=== PATIENT | male | born 1960 | race Caucasian/White ===

== ENCOUNTER → 2020-06-25 15:06 | Outpatient (CLI) | payer OTHER, SELFPAY ==
--- NOTE | 2020-06-25 10:44 | LES_PTH ---
PATIENT: VLADIMIR KURTZ LOC: [facility] U#:[id number] AGE/SX: 65/M ROOM: RE06/25/[address]: Dr. Willard Schreiber MD : [id number] BED: DIS: SPEC #: [id number] RECD: 06/26/20 06:42 STATUS: LOVE ANNY #: [id number] AVILA: 06/25/20 10:[address]: Willard Schreiber DEPT: SURGICAL PATHOLOGY RECD BY: Jeannine Mckenzie ENTERED: 06/26/20 06:43 SP TYPE: Lesion OTHR DR: No Primary Care Phys Tissues: Skin of external ear, NOS Procedures: Surgery Specimen Level IV HEADER OPERATION: Right ear biopsy PRE-OP DIAGNOSIS: Right ear lesion, history of basal cell CA TISSUE SUBMITTED: Right ear lesion MICROSCOPIC DIAGNOSIS Right ear lesion, biopsy: Basal cell carcinoma. SJ:edward 06/27/20 COMMENT Case has been reviewed in consultation with Dr. Horan who concurs with the above diagnosis. IDC:AM MICROSCOPIC DESCRIPTION Slides are reviewed. GROSS DESCRIPTION Received in fixative is one container labeled with the patient's name and designated right ear biopsy. The specimen consists of a piece of whittaker-white skin measuring 0.3 x 0.3 x 0.1 cm. The entire specimen is submitted in one cassette. / FABBY:edward 06/26/20 TC:0 CPT: 73664 ADDENDUM ADDENDUM ADDENDUM ADDENDUM ADDENDUM ADDENDUM ADDENDUM ADDENDUM ADDENDUM ADDENDUM 09/30/2020 10:18 ADDENDUM 09/30/2020 10:18 ADDENDUM 09/30/2020 10:18 ADDENDUM 09/30/2020 10:18 ADDENDUM 09/30/2020 10:18 This addendum is added to incorporate an outside pathology consultation report. The case was examined at [facility] (#[id number]) and the following diagnosis was rendered. Right ear lesion, biopsy: Invasive basal cell carcinoma. Please see complete above mentioned consultation report in EMR
== END ==
PROVIDERS: Referring Provider Otolaryngology; Visit Provider Otolaryngology
DX: H93.91 Unspecified disorder of right ear (principal); Z85.828 Personal history of other malignant neoplasm of skin
CPT/HCPCS: 88305

== ENCOUNTER 2020-10-09 09:29 | Outpatient (RCR) | payer MEDICAID, SELFPAY ==
[2020-09-03 09:14] VITALS: BMI 34.5
--- NOTE | 2020-10-09 10:00 | SOAP_ITS ---
REASON FOR REFERRAL: The patient is a 60 year old male referred for a clinical assessment of the swallow function at [facility] on 10/09/2020 due to high risk infiltrating type basal cell carcinoma involving the right external ear canal, cartilage, anterior soft tissue and abutting the right parotid gland status post right ear lesion biopsy (06/25/2020), CT neck with contrast (07/17/2020), and wide local excision with right partial auriculectomy, right superficial parotidectomy, right neck exploration and flap based reconstruction (07/30/2020). RESULTS OF THE EVALUATION: The patient presents with mastication and deglutition abilities found to be grossly within functional limits (SPS: 2), though is at high risk of post irradiation trismus and post irradiation dysphagia which would benefit from further prophylactic treatment approaches. FUNCTIONAL STATUS ASSESSMENT RESULTS: KARNOFSKY PERFORMANCE SCALE INDEX: KARNOFSKY SCORE: 90 SCORE DESCRIPTION: able to carry on normal activity; minor signs or symptoms of disease; able to carry on normal activity and to work; no special care needed. ECOG PERFORMANCE STATUS SCORE: ECOG SCORE: 0 SCORE CRITERIA: asymptomatic SCORE DESCRIPTION: fully active, able to carry on all pre-disease activities without restriction. FUNCTIONAL AMBULATION CATEGORY (FAC): FAC SCORE: 5 (of 5) FAC DESCRIPTION: ambulator- independent SUPPLEMENTARY DYSPHAGIA ASSESSMENT RESULTS (SCALES / PROM): PERFORMANCE STATUS SCALE FOR HEAD & NECK CANCER PATIENT S (PSS-HN): NORMALCY OF DIET: 100 ? full diet (no restrictions) PUBLIC EATIN ? no restriction of place, food, or company UNDERSTANDABILITY OF SPEECH: 100 ? always understandable PSS-HN TOTAL SCORE: 300/300 PSS-HN SCORE INTERPRETATION: higher scores indicate higher degrees of functioning. ORAL MOTOR / MODIFIED CRANIAL NERVE ASSESSMENT: TRIGEMINAL NERVE (CNV): no clinically significant abnormalities observed FACIAL NERVE (CNVII): no clinically significant abnormalities observed GLOSSOPHARYNGEAL NERVE (CNIX): no clinically significant abnormalities observed VAGUS NERVE (CNX): no clinically significant abnormalities observed HYPOGLOSSAL NERVE (CNXII): no clinically significant abnormalities observed FACIAL STRUCTURES: right partial auriculectomy and facial skin resection with skin graft MANDIBULAR FUNCTIONING: no current signs or symptoms suggesting trismus INTER-INCISOR DISTANCE (IID) AVERAGE IID: 4.25 cm IID GRADE: grade 0 IID GRADE DESCRIPTION: no symptoms of OSMF; without trismus WORLD HEALTH ORGANIZATION (WHO) ORAL MUCOSITIS SCALE: WHO ORAL MUCOSITIS SCALE GRADE: grade 0 WHO ORAL MUCOSITIS SCALE GRADE DESCRIPTION: no objective findings, function irrelevant SCALE OF SUBJECTIVE TOTAL TASTE ACUITY (STTA): STTA GRADE: grade 0 STTA GRADE DESCRIPTION: same taste acuity as before treatment RTOG RADIATION MORBIDITY SCORING CRITERIA FOR XEROSTOMIA: ACUTE REACTIONS: grade I GRADE DESCRIPTION: mild mouth dryness; slightly thickened saliva; changes are not reflected by alteration in baseline feeding SIALORRHEA SCORING SCALE (SSS): SSS SCORE: 1 (of 9) SSS DESCRIPTION: dry, never drools CLINICAL ASSESSMENT OF SWALLOW FUNCTION (QUANTITATIVE): REPETITIVE SALIVA SWALLOWING TEST (RSST): RSST RESULT: pass RSST DESCRIPTION: able to elicit 2 dry swallows within 30 seconds. 1OZ WATER SWALLOWING TEST (1OZ WST): 1OZ WST RESULTS: normal ? 1 (of 5) 1OZ WST DESCRIPTION: single swallow without coughing during ingestion DRINKING EPISODES: none 3OZ WATER SWALLOWING TEST (3OZ WST): 3OZ WST RESULTS: normal DRINKING EPISODES: none ANDREWS ASSESSMENT OF SWALLOWING ABILITY ? CANCER (MASA-C): MASA ASPIRATION SEVERITY SCORE: 192 MASA SEVERITY SCORE DESCRIPTION: unremarkable MASA-C DYSPHAGIA RISK RATING: possible; lowered probability of disorder CLINICAL ASSESSMENT OF SWALLOW FUNCTION (QUALITATIVE): ORAL PREPARATORY PHASE: sufficient mastication rate and quality; sufficient anterior oral containment during manipulation; preserved management of breathing / bolus formation without disrupted E ? S ? E pattern ORAL TRANSITIONAL PHASE: no signs of transitional incompetence; no signs of bolus consolidation impairments no signs or symptoms of premature posterior bolus loss; PHARYNGEAL PHASE: appropriate hyolaryngeal excursion upon digital palpation; no obvious findings suggestive of pharyngeal phase delay / dyssynchrony; no signs or symptoms of pharyngeal dysmotility; no subjective signs of velopharyngeal impairments; no signs or symptoms of penetration / aspiration throughout trials. ESOPHAGEAL PHASE: esophageal phase appears unremarkable CLINICAL ASSESSMENT OF SWALLOW FUNCTION (SEVERITY GRADING): SWALLOWING PERFORMANCE SCALE (SPS): SPS SCORE: 2 (of 7) SPS SEVERITY LEVEL: within functional limits SPS SCORE DESCRIPTION: abnormal oral or pharyngeal stage; able to eat regular diet without modifications or swallowing precautions INTERVENTION CONSIDERATIONS AND RECOMMENDATIONS: I cannot definitively rule out silent aspiration at bedside; I would consider objective assessment of the oropharyngeal swallow function if silent aspiration is suspected (no current clinical suspicions) due to the high prevalence associated with the Patients etiology. I will additionally recommend a repeat modified barium swallow study within 1-2 months post chemoradiation to further assess the patients oropharyngeal swallow function and identify any post radiation changes in the oropharyngeal physiology, as the patient is at higher risk for continual changes and possible decline in swallow functioning / dysphagia severity throughout the chemoradiation intervention cycle; he will benefit from continued monitoring and treatment plan adjustments as necessary. RECOMMENDATIONS FOR INTERVENTION: The patient requires continued skilled speech-language intervention targeting diet texture management and training / implementation of recommended compensatory strategies; training and implementation of a Trismus based exercise program to promote improved (giulia-irradiation) and sustained (post- irradiation) mandibular functioning; development, training and implementation of a home-based prophylactic swallowing exercise program to promote the highest level of preserved post-irradiation swallow functioning; patient / caregiver education regarding giulia and post-irradiation dysphagia and associated symptomology; with goal adjustment as clinically indicated. POST ASSESSMENT EDUCATION: The results and recommendations were discussed with the patient immediately following completion of the assessment, with the patient verbalizing understanding and agreement with all recommendations and education provided. We discussed the patient?s elevated risk for continual changes and possible decline in swallow functioning / dysphagia severity throughout the chemoradiation intervention cycle; the patient would benefit from continued monitoring across all domains throughout irradiation therapy including post irradiation. We discussed recommendations for prophylactic oropharyngeal strengthening / range of motion exercises to reduce the effects of giulia and post radiation induced oropharyngeal dysphagia associated with head and neck cancer, with handouts provided outlining the recommended exercises; further / continual training is highly indicated to ensure proper execution and maintenance to the program. We discussed recommendations for mandibular range of motion stretching and exercise to reduce the effects of trismus and facilitate improved / maintained mandibular functioning, with handouts provided outlining the recommended exercises; further / continual training is indicated to ensure proper execution and maintenance to the program. I provided reinforcement of prior patient and family education regarding the importance of oral care throughout the irradiation process and post- irradiation, with recommendations for an aggressive oral care program. DIET TEXTURE RECOMMENDATIONS: Will recommend a regular ? easy to chew textured (IDDSI: 7), thin liquid diet (IDDSI: 0) diet RECOMMENDED COMPENSATORY STRATEGIES: Reduced bolus volume / rate of ingestion, seated upright at 90 degrees during PO intake, remain upright for 30-60 minutes post meal (GERD precaution) FUNCTIONAL OUTCOMES: OUTCOME 1: the patient will tolerate the least restrictive means of nutrition to facilitate adequate hydration / nutrition with optimum safety and efficiency of swallowing function during P.O. intake without overt signs and symptoms of aspiration. OUTCOME 2: the patient will demonstrate and utilize recommended mandibular range of motion stretching and exercise within the patient?s clinical and home based program to improve and maintain overall mandibular functioning and oral preparatory functioning reducing the effects of trismus, with minimal cueing and prompting provide by the clinician, across 2 out of 3 sessions. OUTCOME 3: the patient will demonstrate and utilize recommended oropharyngeal range of motion exercise within the patient?s clinical and home-based program to improve and maintain overall oropharyngeal functioning and reducing the effects of post-irradiation dysphagia, with minimal cueing and prompting provide by the clinician, across 2 out of 3 sessions. OUTCOME 4: goal adjustment as needed Mika Austin M.A., CCC-TRAFFIC INVESTIGATOR, CBIS MBSImP Certified, LSVT Certified [facility] Speech-Language Pathology Department Email: [email or web address]
== END 2020-10-09 19:00 | disposition home or self-care (01) ==
LOC: SP 09:29
PROVIDERS: Referring Provider Student in an Organized Health Care Education/Training Program; Visit Provider Student in an Organized Health Care Education/Training Program
DX: C44.91 Basal cell carcinoma of skin, unspecified (principal)
CPT/HCPCS: 77386; 92610

== ENCOUNTER → 2025-02-28 | Outpatient (CLI) | payer MEDICARE, SELFPAY ==
[2020-09-03 09:14] VITALS: BMI 34.5
[2025-02-28 12:49] LABS: Hematocrit 46.0 % (40-54); Hemoglobin 15.7 g/dL (13.0-16.5); Immature Granulocytes Count 0.040 X10^3/uL (0.0-0.0); Mean Corp Hgb Conc 34.1 g/dL (32-36); Mean Corpuscular Volume 84.7 fL (80-94); Mean Platelet Vol. 9.0 fl (6.2-12.0); NRBC Flagged by Analyzer 0 % (0-5); Platelet Count 245 K/mm3 (150-450); RBC Distribution Width CV 12.1 % (11.6-14.6); RBC Distribution Width SD 36.9 fl (35.1-43.9); Red Blood Count 5.43 M/mm3 (4.6-6.2); White Blood Count 7.4 K/mm3 (4.4-11.0)
[2025-02-28 14:02] LABS: AST(SGOT) 22 U/L (<=37); Alanine Aminotransfer ALT/SGPT 22 U/L (<=46); Albumin, Serum 4.0 g/dL (3.4-4.8); Alkaline Phosphatase 72 U/L (40-129); Anion Gap 13 (5-15); BUN 19 mg/dL (4-19); BUN/Creat Ratio 20.4 RATIO (10-20); Calcium,Total 9.1 mg/dL (7.6-11.0); Carbon Dioxide 24.6 mmol/L (21.0-32.0); Chloride 101 mmol/L (98-108); Cholesterol 168 mg/dL (<=200); Ferritin 261 ng/mL (37-417); Globulin 2.8 g/dL (2.2-4.2); Glucose 98 mg/dL (70-99); Low Density Lipoprotein Calc. 108 mg/dL; PSA,Total - Annual Screen 0.97 ng/mL (0.02-4.00); Potassium 4.2 mmol/L (3.3-5.1); Triglycerides 113 mg/dL; Very Low Density Lipoprotein 23 mg/dL (5-40); Vitamin B12 535 pg/mL (180-914); Vitamin D,25 Hydroxy 26.3 ng/mL (30-100); cholesterol:hdl ratio screen 4.46
[2025-02-28 15:26] LABS: Iron 92 ug/dL (65-175)
== END | disposition home or self-care (01) ==
PROVIDERS: Visit Provider Nurse Practitioner Family
DX: R03.0 Elevated blood-pressure reading, without diagnosis of hypertension (principal); E78.5 Hyperlipidemia, unspecified; E55.9 Vitamin D deficiency, unspecified; E53.8 Deficiency of other specified B group vitamins; D50.9 Iron deficiency anemia, unspecified; Z12.5 Encounter for screening for malignant neoplasm of prostate; E03.9 Hypothyroidism, unspecified
CPT/HCPCS: 36415; 80053; 80061; 82306; 82607; 82728; 83036; 83540; 84153; 84439; 84443; 85025; G0103

== ENCOUNTER → 2025-04-10 | Outpatient (CLI) | payer MEDICARE, SELFPAY ==
[2020-09-03 09:14] VITALS: BMI 34.5
--- NOTE | 2025-04-10 12:53 | CT_ITS ---
PROCEDURE: SOFT TISSUE NECK WITH CONTRAST 04/10/2025 REASON FOR EXAM: BASAL CELL CARCINOMA OF SKIN OF RIGHT EAR AND EXTE Status post radiation. TECHNIQUE: SOFT TISSUE NECK WITH CONTRAST CONTRAST: Isovue 370 VOLUME: 75 mL One or more dose reduction techniques were used (e.g., Automated exposure control, adjustment of the mA and/or kV according to patient size, use of iterative reconstruction technique). RADIATION DOSE SUMMARY: CTDlvol: 19.29 mGy DLP: 626.52 mGycm COMPARISON: Prior study dated July 17, 2020. FINDINGS: Airway: Midline and patent. Salivary glands: Unremarkable. Lymph nodes: No cervical lymphadenopathy. Thyroid: Minimal heterogeneous appearance. Vasculature: Carotid arteries and internal jugular veins are unremarkable. Orbits: Unremarkable at visualized levels. Paranasal sinuses and mastoids: Grossly clear at visualized levels. Lung apices: Clear. Upper mediastinum: Visualized mediastinum is unremarkable. Bones: Multilevel degenerative changes of the spine. Other: Battery pack seen overlying the right posterior parietal bone causing beam hardening artifact. CT/Soft Tissue Neck WITH Contrast IMPRESSION: No acute abnormality is seen. Reading Location: [id number]
== END | disposition home or self-care (01) ==
LOC: CT 12:51
PROVIDERS: PCP Nurse Practitioner Family; Referring Provider Nurse Practitioner Family; Visit Provider Nurse Practitioner Family
DX: C44.212 Basal cell carcinoma of skin of right ear and external auricular canal (principal)
CPT/HCPCS: 70491; Q9967; A4216